=== PATIENT | male | born 1935 | race Caucasian/White ===

== ENCOUNTER 2022-01-03 13:02 | Outpatient (CLI) | payer MEDICARE, OTHER ==
[2022-01-03 14:53] LABS: Hemoglobin 12.8 g/dL (13.5-17.5); Mean Corpuscular HGB CONC 33.1 g/dL (32.0-36.0); Mean Corpuscular Hemoglobin 32.5 pg (27.0-33.0); Mean Corpuscular Volume 98.2 fl (81.2-95.1); Mean Platelet Volume 9.6 fl (7.4-10.4); Platelet Count 162 10x3/uL (150-450); RBC Distribution Width 13.9 % (11.5-14.5); Red Blood Cell (RBC) Count 3.94 10x6/uL (4.32-5.72); White Blood Cell (WBC) Count 6.5 10x3/uL (3.5-10.5)
[2022-01-03 15:00] LABS: PTT 25.5 sec (22.0-33.0); Prothrombin Time 10.9 sec (9.5-12.1)
[2022-01-03 15:07] LABS: ALT (SGPT) 9 U/L (8-55); AST (SGOT) 12 U/L (5-34); Albumin 3.3 g/dL (3.4-4.8); Alkaline Phosphatase 74 U/L (40-110); Anion Gap 11 mmol/L (10-20); BUN (Urea Nitrogen) 17 mg/dL (8.4-25.7); Bilirubin, Total 0.6 mg/dL (0.2-1.2); Calc. Creatinine Clearance 0 mL/min (70-130); Calcium 9.1 mg/dL (7.8-10.44); Carbon Dioxide 30 mmol/L (23-31); Chloride 104 mmol/L (98-107); Globulin 2.7 g/dL (2.4-3.5); Glucose 148 mg/dL (83-110); Magnesium 1.8 mg/dL (1.6-2.6); Potassium 4.2 mmol/L (3.5-5.1); Sodium 141 mmol/L (136-145)
== END 2022-01-03 13:03 | disposition home or self-care (01) ==
LOC: CSHLAB 13:02
PROVIDERS: ATTEND Specialist
DX: Z01.818 Encounter for other preprocedural examination (principal); I48.91 Unspecified atrial fibrillation
CPT/HCPCS: 80053; 83735; 85027; 85610; 85730; 93005; 93010

== ENCOUNTER → 2022-01-08 | Day surgery (SDC) | payer MEDICARE, OTHER ==
[~2022-01-08] MED LIST: FLU VACC QS2021-22(65YR UP)/PF 240 MCG/0.7 ML SYRINGE IM ONE; Lidocaine 1% (PF) 30 ML VIAL ONE; Magnesium 2 GM/50 ML(in water) 2 GM in Premix Bag 1 BAG IVPB SCH; PROPOFOL 20 ML ONE
[2022-01-08 11:25] VITALS: BP 135/73; TEMP 97.7
== END ==
LOC: CSHSDC 10:15
PROVIDERS: ATTEND Specialist
DX: I48.0 Paroxysmal atrial fibrillation (principal); I11.0 Hypertensive heart disease with heart failure; I50.32 Chronic diastolic (congestive) heart failure; E78.5 Hyperlipidemia, unspecified; Z95.0 Presence of cardiac pacemaker; Z79.899 Other long term (current) drug therapy; E78.2 Mixed hyperlipidemia; E11.9 Type 2 diabetes mellitus without complications; Z86.73 Personal history of transient ischemic attack (TIA), and cerebral infarction without residual deficits; N40.0 Benign prostatic hyperplasia without lower urinary tract symptoms; Z79.01 Long term (current) use of anticoagulants
CPT/HCPCS: 92960; 93005; 93010; J2001; J2704; J3475